=== PATIENT | female | born 1985 | race Two or more races ===

== ENCOUNTER → 2021-01-22 | Outpatient (CLI) | payer MEDICAID ==
[~2021-01-22] MED LIST: PRED20TA PO
== END | disposition home or self-care (01) ==
LOC: CFH 10:53
PROVIDERS: ATTEND Chiropractor
DX: M47.814 Spondylosis without myelopathy or radiculopathy, thoracic region (principal); M99.01 Segmental and somatic dysfunction of cervical region; M99.02 Segmental and somatic dysfunction of thoracic region; M99.03 Segmental and somatic dysfunction of lumbar region; M99.04 Segmental and somatic dysfunction of sacral region
CPT/HCPCS: 72040; 72072; 72100; 72170